=== PATIENT | male | born 1955 | race Caucasian/White ===

== ENCOUNTER 2021-10-31 01:41 | Inpatient (IN) | payer OTHER ==
[~2021-10-31] VITALS: Ht 180.3 cm; Wt 122.8 kg
[2021-10-31 02:12] LABS: Hemoglobin 12.4 g/dL (13.5-17.5); Mean Corpuscular HGB 31.9 pg (26.0-34.0); Mean Corpuscular Volume 103 fL (80-100); NRBC ABSOLUTE 0.03 K/mm3 (0.00-0.02); NRBC Auto 0.2 /100 WBC (0.0-0.2); Platelet Count 151 K/mm3 (150-400); RDW Coefficient Variation 15.7 % (11.7-14.2); RDW Standard Deviation 59.5 fL (35.1-46.3); Red Blood Cell Count 3.89 M/mm3 (4.30-5.90); White Blood Cell Count 13.81 K/mm3 (4.00-11.30)
[2021-10-31 02:14] LABS: Mean Platelet Volume 13.1 fL (9.1-12.4)
[2021-10-31 02:31] LABS: Albumin/Globulin Ratio 0.9 (0.8-1.8); BAND PERCENT MAN 10 % (0-8); BASOPHILS PERCENT MAN 0 % (0-2); Bilirubin, Total 0.3 mg/dL (0.1-1.0); Bun/Creatinine Ratio 13.4 (12.0-20.0); Calcium, Blood 8.6 mg/dL (8.5-10.1); Creatinine, Blood 2.09 mg/dL (0.60-1.20); EOSINOPHILS ABSOLUTE MAN 0.41 K/mm3 (0.00-0.68); EOSINOPHILS PERCENT MAN 3 % (0-6); Globulin, Blood 3.5 g/dL (2.2-4.0); LYMPHOCYTES ABSOLUTE MAN 4.83 K/mm3 (0.84-5.20); LYMPHOCYTES PERCENT MAN 35 % (21-46); METAMYELOCYTE ABSOLUTE MAN 0.69 K/mm3 (0.00-0.00); METAMYELOCYTE PERCENT MAN 5 % (0-0); MONOCYTES ABSOLUTE MAN 0.82 K/mm3 (0.16-1.47); MONOCYTES PERCENT MAN 6 % (4-13); MYELOCYTE ABSOLUTE MAN 0.41 K/mm3 (0.00-0.00); MYELOCYTE PERCENT MAN 3 % (0-0); NEUTROPHILS ABSOLUTE MAN 6.62 K/mm3 (1.96-9.15); Potassium, Blood 3.6 mmol/L (3.5-5.5); SEG NEUTROPHILS PERCENT MAN 38 % (41-73); TOTAL CELLS COUNTED 100; Total Protein, Blood 6.5 g/dL (6.4-8.2)
[2021-10-31 03:33] LABS: PCO2 Arterial 52.1 mmHg (35-45); PO2 Arterial 396 mmHg (80-100); pH Blood Arterial 7.36 (7.35-7.45)
[2021-10-31 04:22] LABS: U Amphetamine Screen Not Detected; U Barbituate Screen Not Detected; U Benzodiazapine Screen Not Detected; U Buprenorphine Screen Not Detected; U Cannabinoids Screen Not Detected; U Cocaine Screen Not Detected; U Methadone Screen Not Detected; U Methamphetamine Screen Not Detected; U Opiates Screen Not Detected; U Oxycodone Screen Not Detected; U Phencyclidine Screen Not Detected; U Propoxyphene Screen Not Detected
--- NOTE | 2021-10-31 04:50 | NUR ---
PATIENT ARRIVED TO ICU 6 FROM ED VIA GURNEY WITH RT AT BEDSIDE WITH TRAVEL VENT. ETT IN PLACE. PATIENT TRANSFERRED TO ICU BED WITH SLIDER SHEET AND PLACED ON ICU MONITORS. ZOLL PADS REMOVED PATIENT HAS ABRASION TO HIS MID CHEST UNDER ZOLL SENSOR. PATIENT HAVING SHIVERING MOTIONS AND HOLDING EXTREMITIES TIGHTLY. NO COUGH NO GAG, PUPILS UNEQUAL AND NONREACTIVE, LEFT 5 AND RIGHT 4. PATIENT SUCTIONED BY RT AND SPUTUM SAMPLE OBTAINED AND SENT TO LAB AND PLACED ON VENT AC 16, TV 500, PEEP 5, FIO2 30% PATIENT HAVING COPIOUS CLEAR ORAL SECRETIONS. OG IN PLACE AND PLACED TO LIS DRAINING SMALL AMT CLEAR TO YELLOW LIQUID VIA OG. IO REMAINS TO RIGHT DORAN. BED BATH DONE.
--- NOTE | 2021-10-31 06:30 | NUR ---
DOCTOR GINA NOTIFIED OF LACTIC AND GIVEN UPDATE ON PATIENT. SEE NEW ORDERS.
[2021-10-31 06:46] LABS: BASOPHILS ABSOLUTE AUTO 0.13 K/mm3 (0.00-0.23); BASOPHILS PERCENT AUTO 1 % (0-2); EOSINOPHILS ABSOLUTE AUTO 0.21 K/mm3 (0.00-0.68); EOSINOPHILS PERCENT AUTO 1 % (0-6); Hematocrit 46.6 % (37.0-53.0); Hemoglobin 15.1 g/dL (13.5-17.5); IMMATURE GRAN ABSOLUTE AUTO 0.61 K/mm3 (0.00-0.10); IMMATURE GRAN PERCENT AUTO 3 % (0-1); LYMPHOCYTES ABSOLUTE AUTO 2.09 K/mm3 (0.84-5.20); LYMPHOCYTES PERCENT AUTO 11 % (21-46); MONOCYTES ABSOLUTE AUTO 1.03 K/mm3 (0.16-1.47); MONOCYTES PERCENT AUTO 6 % (4-13); Mean Corpuscular HGB 31.1 pg (26.0-34.0); Mean Corpuscular HGB Conc 32.4 g/dL (31.5-36.5); Mean Corpuscular Volume 96 fL (80-100); NEUTROPHILS ABSOLUTE AUTO 14.53 K/mm3 (1.96-9.15); NEUTROPHILS PERCENT AUTO 78 % (41-73); RDW Coefficient Variation 15.5 % (11.7-14.2); RDW Standard Deviation 54.6 fL (35.1-46.3); Red Blood Cell Count 4.86 M/mm3 (4.30-5.90)
[2021-10-31 06:54] LABS: Bun/Creatinine Ratio 14.8 (12.0-20.0); Calcium, Blood 8.6 mg/dL (8.5-10.1); Creatinine, Blood 2.1 mg/dL (0.60-1.20); Potassium, Blood 5.3 mmol/L (3.5-5.5)
[2021-10-31 07:05] LABS: Source, Urine Foley catheter
[2021-10-31 07:09] LABS: Appearance, Urine Hazy (Clear); Bilirubin, Urine Neg (Neg); Blood, Urine 5+ (Neg); Color, Urine Yellow (P-Yellow); Glucose Qualitative, Urine 2+ (Neg); Ketones, Urine Neg (Neg); Leukocyte Esterase, Urine Neg (Neg); Nitrite, Urine Neg (Neg); Protein, Urine 3+ (Neg); Specific Gravity, Urine 1.015 (1.003-1.022); Urobilinogen, Urine NORM (Normal)
[2021-10-31 07:30] LABS: Bacteria Mod /hpf; Squamous Epithelial Cells Rare /hpf (Few)
[2021-10-31 07:31] LABS: Amorphous Light (0-Heavy); Hyaline Casts 0-2 /lpf (0-2); Mucus Light (0-Heavy)
--- NOTE | 2021-10-31 10:38 | NUR ---
ASSUMED CARE FROM TRACY MOROCHO. PT ON THE VENTILATOR, NO SEDATION. PT HAVING TREMORS THAT MOSTLY INVOLVE THE L SHOULDER, ALSO COULD BE SHIVERING. SOMETIMES TREMORS DO INVOLVE THE WHOLE BODY. NO GAG REFLEX, PUPILLARY RESPONSE, OR RESPONSE FROM ANY EXTREMITIES. PT DOES HAVE A COUGH AND WAS OVERBREATHING THE VENT. LARGE AMT OF ORAL AND ETT SECRETIONS. DR. BONILLA CALLED ABOUT THE TREMORS AND ORDER RECEIVED FOR EEG. [employer] TECH NOTIFIED AND IS CURRENTLY SET UP IN THE ROOM. DR. BONILLA ALSO CAME TO THE BEDSIDE TO ASSESS PT. PT'S SBP UP TO THE 190S AT THE START OF SHIFT. WHILE ZAC, CHAMBER WORKER, SETTING UP AROUND 0930 PT'S BP SUDDENLY DROPPED. PT HAD INCREASING OXYGEN REQUIREMENTS AT THIS TIME TO WITH FIO2 REQUIRING TO BE TURNED UP FROM 40% TO 70%. DR. BONILLA NOTIFIED AND LEVOPHED ORDERED. PT'S IO DIFFICULT TO FLUSH SO LEVOPHED STARTED THROUGH PERIPHERAL WITH EXCELLENT BLOOD RETURN IN UPPER ARM. DR. BONILLA PLANS TO PLACE CENTRAL LINE, BUT WAITING FOR EEG TO BE COMPLETED PT HAS STOPPED BREATHING OVER THE VENT SINCE ABOUT 0900. PT HAS ALSO STOPPED TREMORING AND COUGHING ON THE VENT. DR. BONILLA AWARE OF THESE CHANGES.
--- NOTE | 2021-10-31 12:59 | NUR ---
REASSESSMENT PT CONTINUES ON THE VENTILATOR. THE ONLY RESPONSES NOTED WERE DECEREBRATE TYPE POSTURING WITH AN OUTWARD TURN OF HIS ARMS WHEN A PILLOW WAS REMOVED FROM UNDERNEATH HIM AND ALSO WHEN HIS IO WAS FLUSHED. NO GAG RELFEX NOTED, NO COUGH OR SWALLOW, PUPILS ARE NONREACTIVE, R SIDE 3MM L SIDE 4MM. PT'S TEMPERATURE WAS INITIALL RISING, BUT HAS STARTED DECLINING AND WARM BLANKETS APPLIED, CURRENTLY 94.0F. R FEMORAL CENTRAL LINE AND ARTERIAL LINE PLACED BY DR. BONILLA. LEVOPHED REMAINS AT 12MCG/MIN WITH MAP AT 86. SR WITH RATE IN THE 80S. LUNGS COARSE, FIO2 STILL AT 70% WITH SPO2 94%. LESS ORAL SECRETIONS OVER THE LAST 2 HOURS. HERNANDEZ WITH CL YELLOW URINE. CARE MANAGEMENT WORKING ON TRACKING DOWN NEXT OF KIN. REPEAT HEAD CT PER DR. BONILLA.
--- NOTE | 2021-10-31 15:15 | NUR ---
NEXT OF KIN PT'S LISTED NEXT OF KIN/GIRLFRIEND CALLED AND MESSAGE LEFT. SHERRY CALLED BACK, CONFIRMED THAT SHE KNEW CRISTINA ORR AND THEN UPDATED HER ON PT'S CONDITION. SHERRY WAS VERY TEARFUL, SUPPORT PROVIDED AND ALL QUESTIONS ANSWERED. SHE CONFIRMED THAT PT DOESN'T HAVE ANY KNOWN BLOOD RELATIVES. SHE STATES THERE'S A GENTLEMAN NAMED TORRIE THAT SHE WILL NOTIFY BUT HE IS NOT RELATED. HE JUST KNEW PT AND "HELPED HIM OUT WHEN HE WAS ON THE STREETS" BUT TORRIE IS DOWN IN [place]. SHERRY IS CURRENTLY IN [place] AND STATES SHE WON'T BE ABLE TO COME DOWN TO SEE PT.
--- NOTE | 2021-10-31 15:34 | NUR ---
Pt. is in bed and non-responsive. Pt. admission info shows "Nondenominational" while some articles among the Pts. effects look Sikhism. At the request of ICU nurse Demetrice, a jew EOL blessing and annonting is given for the Pt. Pt. remained unresponsive during the blessing.
--- NOTE | 2021-10-31 16:41 | NUR ---
Donor Team (DT) conversation facilitated. DT advocate instructed to make a good kalyan effort, per hospital policy, to communicate with the [facility] SO regarding organ donor suitability, prior to engaging in the process. If the SO is uncomfortable participating, but has no objection, the hospital school administrator / bioethicist will consent to the process, as long as two doctors offer attestation in the medical record, that the required clinical thresholds have been adequately met. Thank you for this consult. Deyvi Reynoso, PhD, LEXX
--- NOTE | 2021-10-31 17:07 | NUR ---
SHIFT SUMMARY PT REMAINS ON THE VENTILATOR, NOT SEDATED. HE HAS NO PUPILLARY REFLEX, L PUPIL BIGGER THAN R, NO GAG, NO COUGH. UNABLE TO STIMULATE ANY RESPOSNE FROM HIS EXTREMITIES. PT DOES HAVE SPONTANEOUS TENSING OF HIS BODY THAT APPEARS DECEREBRATE LIKE WITH SLIGHT INWARD ROTATION OF HIS ARMS. REMAINS IN SR, CONTINUES ON 14MCG/MIN OF LEVOPHED. LUNGS LESS COARSE THIS AFTERNOON AND LARGE AMT OF SECRETIONS HAS GONE AWAY SINCE AROUND NOON. ON 65% FIO2. PT'S BODY TEMP GOT DOWN TO 93.5F, BEAR HUGGER PLACED ON PT ONCE HE RETURNED FROM CT AND TEMP NOW UP TO 95.1F. ONCE PT'S BODY TEMP ABOVE 96.8F, PLAN IS TO PERFORM APNEA TEST. OG REMAINS TO LIS WITH GREEN/PINK TINGED OUTPUT. HERNANDEZ WITH CL YELLOW URINE, SEE I/O. IO REMOVED THIS AFTERNOON AFTER CENTRAL LINE PLACED.
[2021-10-31 18:42] LABS: Influenza A, PCR NEGATIVE (NEGATIVE); Influenza B, PCR NEGATIVE (NEGATIVE); Resp Syncytial Virus, PCR NEGATIVE (NEGATIVE); SARS-Cov-2 (COVID-19) PCR, MMC NEGATIVE (NEGATIVE)
[2021-10-31 19:20] LABS: PO2 Arterial 169 mmHg (80-100); pH Blood Arterial 7.39 (7.35-7.45)
[2021-10-31 19:39] LABS: PO2 Arterial 211 mmHg (80-100)
[2021-10-31 19:40] LABS: PCO2 Arterial 86.5 mmHg (35-45); pH Blood Arterial 7.19 (7.35-7.45)
--- NOTE | 2021-10-31 19:47 | NUR ---
APNEA TEST DONE WITH DR BONILLA AT BEDSIDE. STARTED AT 1926 AFTER 10 MINUTES ON 100% FIO2 WITH A BASELINE ABG DRAWN. CANNULA IN PLACE IN AIRWAY WITH 6L/MIN FLOW. NO RESPIRATORY EFFORT NOTED DURING APNEA TEST, SPO2 GREATER THAN 96%, ABG DRAWN AFTER 10 MINUTES PT RETURNED TO VENTILATOR ON PREVIOUS SETTINGS. ABG RESULTED TO DR BONILLA.
--- NOTE | 2021-10-31 20:00 | NUR ---
193 DOCTOR BONILLA AND RT AT BEDSIDE FOR APNEA TEST. PATIENT CONTINUES TO BE UNRESPONSIVE WITH PUPILS UNEQUAL LEFT 4 RIGHT 3. AT TIMES BODY BECOMING STIFF WITH SPINAL REFLEX. 1941 TOJim, PATIENT CARE TURNED OVER TO [facility] FOR DONOR CARE. ETT IN PLACE WITH VENT AC 16, TV 500, PEEP 5, FIO2 70% NO COUGH WITH SUCTIONING AND OBTAINING SMALL AMT CLEAR SECRETIONS. LEVOPHED INFUSING TITRATING UP TO 20 MCG AFTER APNEA TRIAL ORDER FOR VASOPRESSIN AND ALBUMIN BOLUS OBTAINED. MONITORING BP WITH ART LINE TO RIGHT GROIN. OG IN PLACE TO LIS WITH SMALL AMT OF CLEAR TO LIGHT BROWN SECRETIONS. DOCTOR BONILLA NOTIFIED SHERRY OF TOD AND SADIA POWELL RN ALSO SPEAKING WITH HER REGARDING PATIENTS CARE. SHERRY VERBALIZED SHE WILL NOT BE COMING DOWN TO [place] AND HAS NO PREFERENCE FOR [facility]
[2021-10-31 22:26] LABS: PCO2 Arterial 55.2 mmHg (35-45); PO2 Arterial 80.2 mmHg (80-100); pH Blood Arterial 7.35 (7.35-7.45)
[2021-10-31 23:08] LABS: BASOPHILS ABSOLUTE AUTO 0.07 K/mm3 (0.00-0.23); BASOPHILS PERCENT AUTO 1 % (0-2); EOSINOPHILS ABSOLUTE AUTO 0.17 K/mm3 (0.00-0.68); EOSINOPHILS PERCENT AUTO 1 % (0-6); Hematocrit 37.5 % (37.0-53.0); Hemoglobin 12.2 g/dL (13.5-17.5); IMMATURE GRAN PERCENT AUTO 1 % (0-1); LYMPHOCYTES ABSOLUTE AUTO 1.62 K/mm3 (0.84-5.20); LYMPHOCYTES PERCENT AUTO 12 % (21-46); MONOCYTES ABSOLUTE AUTO 0.78 K/mm3 (0.16-1.47); MONOCYTES PERCENT AUTO 6 % (4-13); Mean Corpuscular HGB 30.9 pg (26.0-34.0); Mean Corpuscular HGB Conc 32.5 g/dL (31.5-36.5); Mean Corpuscular Volume 95 fL (80-100); NEUTROPHILS ABSOLUTE AUTO 11.23 K/mm3 (1.96-9.15); NEUTROPHILS PERCENT AUTO 80 % (41-73); Platelet Count 126 K/mm3 (150-400); RDW Coefficient Variation 15.7 % (11.7-14.2); RDW Standard Deviation 54.6 fL (35.1-46.3); Red Blood Cell Count 3.95 M/mm3 (4.30-5.90); White Blood Cell Count 14.07 K/mm3 (4.00-11.30)
[2021-10-31 23:10] LABS: Mean Platelet Volume 13.1 fL (9.1-12.4)
[2021-10-31 23:24] LABS: Albumin, Blood 3.2 g/dL (3.4-5.0); Albumin/Globulin Ratio 0.9 (0.8-1.8); Bilirubin, Direct 0.3 mg/dL (0.0-0.3); Bilirubin, Indirect 0.4 mg/dL (0.1-0.7); Bilirubin, Total 0.7 mg/dL (0.1-1.0); Bun/Creatinine Ratio 14.9 (12.0-20.0); Calcium, Blood 8.4 mg/dL (8.5-10.1); Creatinine, Blood 2.21 mg/dL (0.60-1.20); Globulin, Blood 3.4 g/dL (2.2-4.0); Magnesium, Blood 1.9 mg/dL (1.6-2.4); Phosphorus, Blood 2.1 mg/dL (2.5-4.9); Potassium, Blood 3.7 mmol/L (3.5-5.5); Total Protein, Blood 6.6 g/dL (6.4-8.2)
[2021-10-31 23:25] LABS: International Normalized Ratio 1.04; Prothrombin Time Results 10.9 Sec (9.7-11.5)
[2021-10-31 23:45] LABS: Source, Urine Foley catheter
[2021-10-31 23:53] LABS: Bilirubin, Urine Neg (Neg); Blood, Urine 5+ (Neg); Glucose Qualitative, Urine 3+ (Neg); Ketones, Urine Neg (Neg); Leukocyte Esterase, Urine 1+ (Neg); Nitrite, Urine Neg (Neg); Protein, Urine 2+ (Neg); Specific Gravity, Urine 1.015 (1.003-1.022); Urobilinogen, Urine NORM (Normal)
[2021-11-01 00:18] LABS: Appearance, Urine Turbid (Clear); Color, Urine Pale Yellow (P-Yellow)
[2021-11-01 00:19] LABS: Amorphous Heavy (0-Heavy); Bacteria Rare /hpf; Red Blood Cells, Urine 0-2 /hpf (0-2); Squamous Epithelial Cells Not Seen /hpf (Few); White Blood Cells, Urine 0-2 /hpf (0-5)
[2021-11-01 05:06] LABS: International Normalized Ratio 1.07; Prothrombin Time Results 11.2 Sec (9.7-11.5)
[2021-11-01 05:19] LABS: Albumin, Blood 3.2 g/dL (3.4-5.0); Albumin/Globulin Ratio 0.9 (0.8-1.8); Bilirubin, Direct 0.3 mg/dL (0.0-0.3); Bilirubin, Indirect 0.4 mg/dL (0.1-0.7); Bilirubin, Total 0.7 mg/dL (0.1-1.0); Bun/Creatinine Ratio 15.2 (12.0-20.0); Calcium, Blood 8.4 mg/dL (8.5-10.1); Creatinine, Blood 2.23 mg/dL (0.60-1.20); Globulin, Blood 3.5 g/dL (2.2-4.0); Magnesium, Blood 1.9 mg/dL (1.6-2.4); Phosphorus, Blood 1.8 mg/dL (2.5-4.9); Potassium, Blood 3.7 mmol/L (3.5-5.5); Total Protein, Blood 6.7 g/dL (6.4-8.2)
--- NOTE | 2021-11-01 06:31 | NUR ---
[facility] NOTIFIED OF AM LABS, URINE OUTPUT, ELEVATED TEMP, INCREASED SWELLING TO EYES. SEE NEW ORDERS
--- NOTE | 2021-11-01 07:00 | NUR ---
ASSUMED CARE THIS AM. PT. REMAINS UNRESPONSIVE. PUPILS 4MM, NOT RESPONSIVE TO LIGHT. NO COUGH OR GAG NOTED. PT. NOT RESPONSIVE TO PAIN, DOES OCCASIONAL POSTURE DECORTICATE BUT NOT CONSISTENT WITH STIMULI. REMAINS ON VENT AC 16, TV 550, 80%FIO2 AND PEEP 8. [facility] ASSISTING WITH ORDERS. SEE FLOWSHEET FOR GTT RATES, CURRENTLY HAS VASOPRESSIN, LEVOPHED, LEVOTHYROXINE, INSULIN CONTINUOUSLY INFUSING. CONTINUES WITH PERIPHERAL IV ACCESS ALONG WITH RIGHT GROIN CENTRAL LINE AND RIGHT GROIN ARTERIAL LINE.
--- NOTE | 2021-11-01 07:22 | NUR ---
SUMMARY PATIENT REMAINS INTUBATED, VENT AC 16, TV 550, PEEP 8, FIO2 80% REMAINS NONRESPONSIVE. PUPILS NONREACTIVE BOTH 4. EYES WITH SCLERAL EDEMA THIS MORNING PATIENT CONTINUES TO HAVE EPISODES OF POSTURING NOT ALWAYS CORRELATING TO STIMULI. LEVOPHED 10 MCG AND VASOPRESSIN 0.02 INFUSING FORM HYPOTENSION. BP VIA ART LINE WITH GOOD WAVEFORM. INSULIN DRIP STARTED TO KEEP GLUCOSE LESS THAN 180. LEVOTHYROXINE DRIP CONTINUES. OG REMAINS IN PLACE DRAINING SMALL AMT OF BROWN BILE. SMALL NOSE BLEED SEEN TO RIGHT NARE STOPPED AFTER CUSHIONING PLACED BETWEEN ETT MATHIS AND NOSE. ORDERS AND PARAMETERS PER [facility].
[2021-11-01 10:20] LABS: PCO2 Arterial 42.9 mmHg (35-45); PO2 Arterial 84.4 mmHg (80-100); pH Blood Arterial 7.46 (7.35-7.45)
[2021-11-01 10:31] LABS: Source, Urine Foley catheter
[2021-11-01 10:40] LABS: BASOPHILS ABSOLUTE AUTO 0.05 K/mm3 (0.00-0.23); BASOPHILS PERCENT AUTO 0 % (0-2); EOSINOPHILS ABSOLUTE AUTO 0.24 K/mm3 (0.00-0.68); EOSINOPHILS PERCENT AUTO 2 % (0-6); Hematocrit 33.1 % (37.0-53.0); IMMATURE GRAN PERCENT AUTO 1 % (0-1); LYMPHOCYTES ABSOLUTE AUTO 1.85 K/mm3 (0.84-5.20); LYMPHOCYTES PERCENT AUTO 15 % (21-46); MONOCYTES ABSOLUTE AUTO 1.04 K/mm3 (0.16-1.47); MONOCYTES PERCENT AUTO 8 % (4-13); Mean Corpuscular HGB 31.3 pg (26.0-34.0); Mean Corpuscular HGB Conc 33.2 g/dL (31.5-36.5); Mean Corpuscular Volume 94 fL (80-100); Mean Platelet Volume 12.2 fL (9.1-12.4); NEUTROPHILS ABSOLUTE AUTO 9.46 K/mm3 (1.96-9.15); NEUTROPHILS PERCENT AUTO 74 % (41-73); Platelet Count 116 K/mm3 (150-400); RDW Coefficient Variation 15.7 % (11.7-14.2); RDW Standard Deviation 53.3 fL (35.1-46.3); Red Blood Cell Count 3.51 M/mm3 (4.30-5.90); White Blood Cell Count 12.74 K/mm3 (4.00-11.30)
[2021-11-01 10:57] LABS: International Normalized Ratio 1.08; Prothrombin Time Results 11.3 Sec (9.7-11.5)
[2021-11-01 11:01] LABS: Albumin, Blood 3.4 g/dL (3.4-5.0); Bilirubin, Direct 0.2 mg/dL (0.0-0.3); Bilirubin, Indirect 0.5 mg/dL (0.1-0.7); Bilirubin, Total 0.7 mg/dL (0.1-1.0); Bun/Creatinine Ratio 15.2 (12.0-20.0); Calcium, Blood 8.6 mg/dL (8.5-10.1); Creatinine, Blood 2.24 mg/dL (0.60-1.20); Globulin, Blood 3.3 g/dL (2.2-4.0); Magnesium, Blood 1.9 mg/dL (1.6-2.4); Potassium, Blood 4.1 mmol/L (3.5-5.5); Total Protein, Blood 6.7 g/dL (6.4-8.2)
[2021-11-01 11:32] LABS: Appearance, Urine Hazy (Clear); Bilirubin, Urine Neg (Neg); Blood, Urine 5+ (Neg); Color, Urine Yellow (P-Yellow); Glucose Qualitative, Urine Neg (Neg); Ketones, Urine Neg (Neg); Leukocyte Esterase, Urine 1+ (Neg); Nitrite, Urine Neg (Neg); Protein, Urine Neg (Neg); Specific Gravity, Urine 1.015 (1.003-1.022); Urobilinogen, Urine NORM (Normal)
[2021-11-01 11:58] LABS: Bacteria Few /hpf; Red Blood Cells, Urine 25-50 /hpf (0-2); Squamous Epithelial Cells Few /hpf (Few); White Blood Cells, Urine 0-2 /hpf (0-5)
--- NOTE | 2021-11-01 13:40 | NUR ---
LEVOPHED TITRATED OFF AT THIS TIME. VENT SETTINGS ADJUSTED. CURRENTLY ACPC 16, PS 25, 75%FIO2, PEEP 10. PLANS FOR DECREASING PEEP TO 5 IN 1 HOUR THEN OBTAINING BLOOD GAS.
[2021-11-01 14:25] LABS: PO2 Arterial 63.5 mmHg (80-100); pH Blood Arterial 7.38 (7.35-7.45)
--- NOTE | 2021-11-01 15:01 | NUR ---
PT. VENT SETTINGS ADJUSTED AFTER ABG RESULTS, CURENTLY ACPC 16, PS 26, 80% FIO2 AND PEEP 10.
[2021-11-01 16:03] LABS: PCO2 Arterial 52.1 mmHg (35-45); PO2 Arterial 69.4 mmHg (80-100); pH Blood Arterial 7.37 (7.35-7.45)
[2021-11-01 16:52] LABS: International Normalized Ratio 1.07; Prothrombin Time Results 11.2 Sec (9.7-11.5)
[2021-11-01 17:08] LABS: PCO2 Arterial 60.4 mmHg (35-45); PO2 Arterial 97.5 mmHg (80-100); pH Blood Arterial 7.31 (7.35-7.45)
[2021-11-01 17:15] LABS: Albumin, Blood 3.7 g/dL (3.4-5.0); Bilirubin, Direct 0.3 mg/dL (0.0-0.3); Bilirubin, Indirect 0.4 mg/dL (0.1-0.7); Bilirubin, Total 0.7 mg/dL (0.1-1.0); Calcium, Blood 8.4 mg/dL (8.5-10.1); Creatinine, Blood 2.2 mg/dL (0.60-1.20); Globulin, Blood 3.7 g/dL (2.2-4.0); Magnesium, Blood 1.9 mg/dL (1.6-2.4); Potassium, Blood 4.3 mmol/L (3.5-5.5); Total Protein, Blood 7.4 g/dL (6.4-8.2)
[2021-11-01 17:18] LABS: Phosphorus, Blood 5.5 mg/dL (2.5-4.9)
--- NOTE | 2021-11-01 18:28 | NUR ---
SHIFT SUMMARY PT. REMAINS UNRESPONSIVE T/O SHIFT. WORKING WITH Ludi T/O SHIFT. PT REMAINS ON INSULIN GTT, Q1H BG. ATTEMPTED VARIOUS VENT SETTINGS TO IMPROVE BLOOD GAS. PLANS FOR NUC MED STUDY IN THE AM AT 0800 WELL POSSIBLE LIVER BIOPSY TOMORROW AM. PT. BECOMING MORE HYPERTENSIVE T/O SHIFT. LEVOPHED GTT TITRATED OFF THIS SHIFT. NO ACUTE CHANGES, PT CONTINUES TO HAVE DECEREBRATE POSTURING RANDOMLY T/O SHIFT. REPORT TO ONCOMING RN.
[2021-11-01 20:21] LABS: PCO2 Arterial 56.2 mmHg (35-45); PO2 Arterial 79.5 mmHg (80-100); pH Blood Arterial 7.32 (7.35-7.45)
--- NOTE | 2021-11-01 21:36 | NUR ---
ASSUMED CARE OF PT FROM EKTA RN @1900 PT INTUBATED. OG TUBE TO CONTINUOUS SUCTION. HERNANDEZ DRAINING TO GRAVITY. VISIBLE POSTURING APPARENT. VENT AC/PC /. SYNTHROID RUNNING @10MCG/HR. INSULIN @ 2 UNITS/HR. NS TKO. VASOPRESSOR @ 0.04 UNITS/MIN. NO FAMILY OR OTHER PRESENSE. SEE SHIFT ASSESSMENT FOR FURTHER INFORMATION.
[2021-11-01 22:04] LABS: PCO2 Arterial 52.7 mmHg (35-45); PO2 Arterial 86.2 mmHg (80-100); pH Blood Arterial 7.35 (7.35-7.45)
[2021-11-01 22:14] LABS: BASOPHILS ABSOLUTE AUTO 0.02 K/mm3 (0.00-0.23); BASOPHILS PERCENT AUTO 0 % (0-2); EOSINOPHILS ABSOLUTE AUTO 0.01 K/mm3 (0.00-0.68); EOSINOPHILS PERCENT AUTO 0 % (0-6); Hematocrit 33.7 % (37.0-53.0); Hemoglobin 11.2 g/dL (13.5-17.5); IMMATURE GRAN ABSOLUTE AUTO 0.19 K/mm3 (0.00-0.10); IMMATURE GRAN PERCENT AUTO 1 % (0-1); LYMPHOCYTES ABSOLUTE AUTO 0.86 K/mm3 (0.84-5.20); LYMPHOCYTES PERCENT AUTO 6 % (21-46); MONOCYTES ABSOLUTE AUTO 0.74 K/mm3 (0.16-1.47); MONOCYTES PERCENT AUTO 5 % (4-13); Mean Corpuscular HGB 31.3 pg (26.0-34.0); Mean Corpuscular HGB Conc 33.2 g/dL (31.5-36.5); Mean Corpuscular Volume 94 fL (80-100); Mean Platelet Volume 12.5 fL (9.1-12.4); NEUTROPHILS ABSOLUTE AUTO 13.66 K/mm3 (1.96-9.15); NEUTROPHILS PERCENT AUTO 88 % (41-73); Platelet Count 108 K/mm3 (150-400); RDW Coefficient Variation 15.8 % (11.7-14.2); RDW Standard Deviation 54.3 fL (35.1-46.3); Red Blood Cell Count 3.58 M/mm3 (4.30-5.90); White Blood Cell Count 15.48 K/mm3 (4.00-11.30)
[2021-11-01 22:29] LABS: International Normalized Ratio 1.06; Prothrombin Time Results 11.1 Sec (9.7-11.5)
[2021-11-01 22:33] LABS: Albumin, Blood 3.6 g/dL (3.4-5.0); Albumin/Globulin Ratio 0.9 (0.8-1.8); Bilirubin, Direct 0.3 mg/dL (0.0-0.3); Bilirubin, Indirect 0.3 mg/dL (0.1-0.7); Bilirubin, Total 0.6 mg/dL (0.1-1.0); Bun/Creatinine Ratio 13.8 (12.0-20.0); Calcium, Blood 8.1 mg/dL (8.5-10.1); Creatinine, Blood 2.24 mg/dL (0.60-1.20); Magnesium, Blood 2.3 mg/dL (1.6-2.4); Phosphorus, Blood 5.1 mg/dL (2.5-4.9); Potassium, Blood 4.2 mmol/L (3.5-5.5); Total Protein, Blood 7.6 g/dL (6.4-8.2)
[2021-11-01 22:58] LABS: Source, Urine Foley catheter
[2021-11-01 23:06] LABS: Bilirubin, Urine Neg (Neg); Blood, Urine 5+ (Neg); Glucose Qualitative, Urine Neg (Neg); Ketones, Urine Neg (Neg); Leukocyte Esterase, Urine Neg (Neg); Nitrite, Urine Neg (Neg); Protein, Urine 2+ (Neg); Urobilinogen, Urine NORM (Normal)
[2021-11-01 23:27] LABS: Amorphous Light (0-Heavy); Appearance, Urine Clear (Clear); Bacteria Few /hpf; Color, Urine Yellow (P-Yellow); Mucus Light (0-Heavy); Squamous Epithelial Cells Not Seen /hpf (Few); White Blood Cells, Urine 0-2 /hpf (0-5)
--- NOTE | 2021-11-01 23:50 | NUR ---
DISCUSSED RECENT ABG RESULTS, VENT SETTINGS, AND INCREASE IN NOTED DECEREBRATE POSTURING WITH ROVERTO FROM [facility]. NEW PLAN TO GIVE VERSED 2MG AND FENTANYL 50MCG, FOLLOWED BY A DOSE OF ROCURONIUM 50MG. WILL RECHECK ABG AFTERWARDS. ALSO DISCUSSED DECREASE IN URINE OUTPUT OVER LAST TWO HOURS- NEW ORDERS RECEIVED TO STOP VASOPRESSIN AND TO GIVE ALBUMIN FOLLOWED BY LASIX.
[2021-11-02 01:17] LABS: PCO2 Arterial 38.6 mmHg (35-45); PO2 Arterial 122 mmHg (80-100); pH Blood Arterial 7.47 (7.35-7.45)
[2021-11-02 03:47] LABS: PCO2 Arterial 50.6 mmHg (35-45); PO2 Arterial 73.3 mmHg (80-100); pH Blood Arterial 7.37 (7.35-7.45)
[2021-11-02 04:21] LABS: International Normalized Ratio 1.07; Prothrombin Time Results 11.2 Sec (9.7-11.5)
[2021-11-02 04:22] LABS: Albumin, Blood 3.7 g/dL (3.4-5.0); Bilirubin, Direct 0.3 mg/dL (0.0-0.3); Bilirubin, Indirect 0.5 mg/dL (0.1-0.7); Bilirubin, Total 0.8 mg/dL (0.1-1.0); Bun/Creatinine Ratio 14.8 (12.0-20.0); Calcium, Blood 8.2 mg/dL (8.5-10.1); Creatinine, Blood 2.3 mg/dL (0.60-1.20); Globulin, Blood 3.7 g/dL (2.2-4.0); Magnesium, Blood 2.2 mg/dL (1.6-2.4); Phosphorus, Blood 4.1 mg/dL (2.5-4.9); Potassium, Blood 3.6 mmol/L (3.5-5.5); Total Protein, Blood 7.4 g/dL (6.4-8.2)
--- NOTE | 2021-11-02 06:14 | NUR ---
END OF SHIFT SUMMARY INSULIN INFUSING AT 4UNITS/HR TITRATE TO MAINTAIN CBG LESS THAN 180. SYNTHROID DRIP @ 10MCG/HR. VASOPRESSIN OFF @2315. MEDICATED WITH ROCURONIUM, VERSED, AND FENTYNAL FOR VENT COMPLIANCE AND POSTURING. CHANGED TO DNR STATUS. LASIX GIVEN PER ORDERS DUE TO LOW URINE OUTPUT. CPT DONE Q4 HOURS. VITALS STABLE. A LINE, CENTRAL LINE PATENT. OG TO LOW CONTINUOUS SUCTION. WILL REPORT TO ONCOMING RN.
[2021-11-02 07:12] LABS: PCO2 Arterial 48.8 mmHg (35-45); PO2 Arterial 97.4 mmHg (80-100); pH Blood Arterial 7.38 (7.35-7.45)
--- NOTE | 2021-11-02 09:54 | NUR ---
Martin of Care: Care assumed at 0700. 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 Patient intubated, 0 sedation. Ventilating without difficulty, vent to AC 16/600/12/100, spO2-95%. Occasional decerbrate posturing noted, which causes the vent to sense an triggered breath, therefore a-synchronized at times. Patient received nuc-med blood-flow study this morning at 0800hr. Laura Meraz RN "Cam" ordered fentanyl, versed, and rocuronium to be given prior to transport to [facility]. Shortly after fentanyl and versed given, patient's BP decreased to systolic in the 70's, MAP's in the 50's. Call placed to Cam RN, and instructed to start levophed gtt and resume vasopressin gtt at 0.04u/hr. Levophed gtt started at 10mcg/min, and quickly titrated jair to 4mcg/min before transport. Levophed no on stand-by, BP WNL and stable. Instructed to maintain Vasopressin gtt per Pedro MOLINA (also with Laura Meraz). Nuc-med scan obtained without difficulty. Liver biopsy obtained at bed side with radiology JESSIE Jim at approx 0900hr. No complications or signs of bleeding noted at this time. Patient remains on insulin and Synthroid. Received instructions per Pedro this morning to start Rocuronium gtt, as nuc-med study further confirmed brain-. Central line and Arterial line to rt groin, both patent and intact. Lemons cath patent and intact, draining clear yellow urine. Will continue to monitor.
[2021-11-02 10:54] LABS: BASOPHILS ABSOLUTE AUTO 0.02 K/mm3 (0.00-0.23); BASOPHILS PERCENT AUTO 0 % (0-2); EOSINOPHILS PERCENT AUTO 0 % (0-6); Hematocrit 27.6 % (37.0-53.0); Hemoglobin 9.4 g/dL (13.5-17.5); IMMATURE GRAN ABSOLUTE AUTO 0.21 K/mm3 (0.00-0.10); IMMATURE GRAN PERCENT AUTO 1 % (0-1); LYMPHOCYTES PERCENT AUTO 6 % (21-46); MONOCYTES PERCENT AUTO 4 % (4-13); Mean Corpuscular HGB 31.4 pg (26.0-34.0); Mean Corpuscular HGB Conc 34.1 g/dL (31.5-36.5); Mean Corpuscular Volume 92 fL (80-100); Mean Platelet Volume 12.5 fL (9.1-12.4); NEUTROPHILS ABSOLUTE AUTO 14.04 K/mm3 (1.96-9.15); NEUTROPHILS PERCENT AUTO 89 % (41-73); Platelet Count 97 K/mm3 (150-400); RDW Coefficient Variation 15.6 % (11.7-14.2); RDW Standard Deviation 51.8 fL (35.1-46.3); Red Blood Cell Count 2.99 M/mm3 (4.30-5.90); White Blood Cell Count 15.77 K/mm3 (4.00-11.30)
[2021-11-02 11:00] LABS: PCO2 Arterial 39.7 mmHg (35-45); PO2 Arterial 90.6 mmHg (80-100); pH Blood Arterial 7.46 (7.35-7.45)
[2021-11-02 11:11] LABS: International Normalized Ratio 1.1; Prothrombin Time Results 11.5 Sec (9.7-11.5)
[2021-11-02 11:19] LABS: Magnesium, Blood 2.1 mg/dL (1.6-2.4)
[2021-11-02 11:21] LABS: Albumin, Blood 3.6 g/dL (3.4-5.0); Albumin/Globulin Ratio 1.1 (0.8-1.8); Bilirubin, Direct 0.3 mg/dL (0.0-0.3); Bilirubin, Indirect 0.5 mg/dL (0.1-0.7); Bilirubin, Total 0.8 mg/dL (0.1-1.0); Bun/Creatinine Ratio 15.6 (12.0-20.0); Calcium, Blood 8.3 mg/dL (8.5-10.1); Creatinine, Blood 2.37 mg/dL (0.60-1.20); Globulin, Blood 3.4 g/dL (2.2-4.0); Phosphorus, Blood 2.6 mg/dL (2.5-4.9); Potassium, Blood 3.4 mmol/L (3.5-5.5)
--- NOTE | 2021-11-02 12:31 | NUR ---
Update: VS remains stable but arterial BP decreased to systolic 80's, MAP's 50's-60's over last 1hr. Spoke with Mihaela MOLINA ([facility]). Received order to give additional 25g of Albumin. Systolic's now in low 100's with MAP at 65. Urine output increased significantly this morning following 40mg IV lasix but has since slowed in the last 1-2hr. Repeat chem pannel also showed K+ of 3.4, reported to Mihaela and received order for 40meq KCL x1. All lines and tubes remain patent and intact. Will continue to monitor.
--- NOTE | 2021-11-02 15:03 | NUR ---
Update: Rocuronium gtt stopped at this time per instructions from Mihaela. Patient may not be candidate for any organ donation, therefore stopping gtt for potential to extubate to comfort measures. VS remains stable at this time. Will continue to monitor.
[2021-11-02 17:13] LABS: Source, Urine Foley catheter
[2021-11-02 17:25] LABS: Appearance, Urine Hazy (Clear); Bilirubin, Urine Neg (Neg); Blood, Urine 3+ (Neg); Color, Urine Yellow (P-Yellow); Glucose Qualitative, Urine Neg (Neg); Ketones, Urine Neg (Neg); Leukocyte Esterase, Urine Neg (Neg); Nitrite, Urine Neg (Neg); Protein, Urine Neg (Neg); Specific Gravity, Urine 1.015 (1.003-1.022); Urobilinogen, Urine NORM (Normal)
[2021-11-02 17:27] LABS: International Normalized Ratio 1.11; Prothrombin Time Results 11.6 Sec (9.7-11.5)
[2021-11-02 17:33] LABS: Albumin, Blood 3.5 g/dL (3.4-5.0); Albumin/Globulin Ratio 1.1 (0.8-1.8); Bilirubin, Direct 0.3 mg/dL (0.0-0.3); Bilirubin, Indirect 0.5 mg/dL (0.1-0.7); Bilirubin, Total 0.8 mg/dL (0.1-1.0); Creatinine, Blood 2.3 mg/dL (0.60-1.20); Globulin, Blood 3.1 g/dL (2.2-4.0); Magnesium, Blood 2.2 mg/dL (1.6-2.4); Phosphorus, Blood 2.6 mg/dL (2.5-4.9); Total Protein, Blood 6.6 g/dL (6.4-8.2)
[2021-11-02 17:52] LABS: Bacteria Mod /hpf; Squamous Epithelial Cells Rare /hpf (Few); White Blood Cells, Urine 0-2 /hpf (0-5)
--- NOTE | 2021-11-02 17:58 | NUR ---
Shift Summary: See previous notes. BP slightly improved during administration of IV Albumin, but again decreased to systolic 80's, MAP's 50's. Levophed gtt started at 2mcg/min and increased to 3 mcg/min, effective to maintain adequate BP of systolic's low 100's, MAP's 70's. Urine output remained adequate throughout remainder of shift, approx 100-150ml/hr. Vasopressin remains at 0.04u/hr throughout shift. No changes to vent settings, remains PEEP-12, FiO2 100%, SpO2- 94-98%. All other VS stable. Rocuronium gtt stopped approx 1500hr (see previous note). Mihaela informing this RN that potential recipient has been found for liver transplant. Patient continues to show no signs of posturing since rocuronium gtt has been stopped. Consulted with Mihaela MOLINA, plan to keep gtt of at this time. All lines and tubes remain patent and intact. Will continue to monitor until report to NOC shift RN.
--- NOTE | 2021-11-02 19:00 | NUR ---
ASSUMED CARE ASSUMED CARE OF PATIENT. REMAINS INTUBATED- AC/VC+ 16/600/12/100%. LEVOPHED INFUSING AT 3MCG/MIN. VASOPRESSIN AT 0.04UNITS/MIN. SYNTHROID INFUSING AT 10MCG/HR. INSULIN GTT AT 10UNITS/HR. KPHOS INFUSING PER ORDER. RIGHT FEMORAL CENTRAL LINE AND ARTERIAL LINE PATENT, DRSGS C/D/I. OG TO LIS SUCTION WITH SCANT BROWN DRAINAGE. HERNANDEZ PATENT AND DRAINING TO GRAVITY. NO POSTURING NOTED AT THIS TIME. NO NEUROLOGICAL RESPONSE. PLAN IS TO TAKE PT TO OR TONIGHT FOR ORGAN PROCUREMENT.
--- NOTE | 2021-11-02 20:50 | NUR ---
TO OR TO OR AT THIS TIME WITH RN, RT, AND OR CREW. LEVOPHED AND VASOPRESSIN INFUSING.
--- NOTE | 2021-11-03 | NUR ---
11/03/21 0000 Kimberlee Jorge AFTER PROCEDURE PATIENT TRANSFERRED TO ICU WITH ICU STAFF. DEFERRED XRAY FOR COUNTS TO NEXT LEVEL OF CARE. ICU STAFF TO OBTAIN XRAY.
== END 2021-11-02 22:14 | DRG 208 ==
LOC: ER 01:41 → ICUE 03:34 → ICUW 03:34 → EDBD 03:34 → ICUE 04:45
PROVIDERS: Emergency Medicine; Family Medicine; Internal Medicine; Internal Medicine Critical Care Medicine; ADMIT Family Medicine
PROC: 5A1945Z Respiratory Ventilation, 24-96 Consecutive Hours (ICD-10-PCS; principal; 2021-10-31)
PROC: 5A12012 Performance of Cardiac Output, Single, Manual (ICD-10-PCS; 2021-10-31)
PROC: 06HY33Z Insertion of Infusion Device into Lower Vein, Percutaneous Approach (ICD-10-PCS; 2021-10-31)
PROC: 04HY32Z Insertion of Monitoring Device into Lower Artery, Percutaneous Approach (ICD-10-PCS; 2021-10-31)
PROC: 3E033XZ Introduction of Vasopressor into Peripheral Vein, Percutaneous Approach (ICD-10-PCS; 2021-10-31)
PROC: 4A133B1 Monitoring of Arterial Pressure, Peripheral, Percutaneous Approach (ICD-10-PCS; 2021-10-31)
PROC: 4A133J1 Monitoring of Arterial Pulse, Peripheral, Percutaneous Approach (ICD-10-PCS; 2021-10-31)
DX: J96.00 Acute respiratory failure, unspecified whether with hypoxia or hypercapnia (principal); G93.6 Cerebral edema; G93.5 Compression of brain; G93.1 Anoxic brain damage, not elsewhere classified; N17.9 Acute kidney failure, unspecified; Z20.822 Contact with and (suspected) exposure to COVID-19; Z66 Do not resuscitate; I46.9 Cardiac arrest, cause unspecified; R73.9 Hyperglycemia, unspecified; Z59.00 Homelessness unspecified
CPT/HCPCS: 0241U; 31500; 36415; 36556; 36600; 36620; 47000; 51702; 70450; 71045; 71250; 74018; 74176; 76942; 78606; 80048; 80053; 80076; 81001; 82140; 82803; 82947; 83036; 83605; 83615; 83735; 84100; 84484; 85025; 85610; 85730; 86850; 86900; 86901; 87040; 87070; 87086; 87205; 92950; 93005; 93010; 93306; 94002; 94003; 94640; 94664; 94667; 94668; 95819; 96374-59; 96375-59; 99291-25; A9270; A9521; C1751; C9113; J0610; J0690; J1644; J1815; J1940; J2250; J2543; J2930; J3010; J3411; J3475; J3480; J7030; J7040; J7050; J7060; J7070; J7120; P9045; P9047

== ENCOUNTER 2021-10-31 19:42 | Inpatient (IN) | payer OTHER | END 2021-11-02 22:14 | DRG 951 | LOC: ICUW 19:42 | PROVIDERS: ADMIT Family Medicine | DX: Z52.9 Donor of unspecified organ or tissue (principal) | CPT/HCPCS: 31500; 36620; 47000; 71045; 71250; 74018; 74176; 76942; 78606; 80048; 80076; 81001; 82803; 82947; 83735; 84100; 85025; 85610; 85730; 87040; 87070; 87205; 94003; 94640; 94667; 94668; A9270; A9521; J0610; J1644; J1815; J1940; J2250; J2930; J3010; J3411; J3475; J3480; J7040; J7050; J7060; J7070; P9045; P9047 ==